=== PATIENT | male | born 1975 | race African-American/Black ===

== ENCOUNTER 2018-10-15 21:19 | Emergency (ER) | payer SELFPAY ==
[~2018-10-15] VITALS: Ht 185.4 cm; Wt 91.0 kg
[2018-10-15] MEDS ORDERED: KETOROLAC 15MG/ML VIAL IM ONE (22:15)
[2018-10-15] MEDS ORDERED: DIAZEPAM 5 MG/ML 2ML CPJ IM ONE (22:15)
[2018-10-15] MEDS ORDERED: ONDANSETRON 4MG ODT PO ONE (22:15)
[2018-10-15] MEDS ORDERED: HYDROMORPHONE HCL/PF 2MG/ML CPJ IM ONE (23:45)
[2018-10-16 00:30] VITALS: BP 122/80
== END 2018-10-16 00:42 | disposition home or self-care (01) ==
LOC: ER 21:19
DX: M62.830 Muscle spasm of back (principal); G89.29 Other chronic pain; M51.36 Other intervertebral disc degeneration, lumbar region; M51.26 Other intervertebral disc displacement, lumbar region; Z88.5 Allergy status to narcotic agent; Z88.8 Allergy status to other drugs, medicaments and biological substances
CPT/HCPCS: 96372; 99283; J1170; J1885; J3360; Q0162